=== PATIENT | female | born 1980 | race Caucasian/White ===

== ENCOUNTER 2017-06-18 14:45 | Emergency (ER) | payer MEDICAID, SELFPAY ==
[2017-06-18 14:46] VITALS: BP 159/105; PULSE 78; RESP 14; TEMP 36.9; O2SAT 100; BMI 32.5
--- NOTE | 2017-06-18 15:41 | XR_ITS ---
XR chest 2V HISTORY: ITS.REASON: cough ORDERING PHYSICIAN: Sean Vidal MD PATIENT AGE: 37 years COMPARISON: 07/09/2007 FINDINGS: The cardiomediastinal silhouette and pulmonary vascularity are within normal limits. The lungs are clear without infiltrates, suspicious nodules, or pleural effusions. No acute bony abnormalities. IMPRESSION: Negative chest, no acute finding
--- NOTE | 2017-06-18 16:11 | HMH.EDGENADL ---
ED Disposition Clinical Impression: Bronchitis Disposition: Home, Self-Care Condition on Discharge: Good Instructions: DI for Acute Bronchitis Additional Instructions: Please discontinue the use of Keflex at the current time, please find prescription attached for new antibiotic, Levaquin. Please follow-up with PCP if not better in 5-7 days. Prescriptions: Benzonatate [Tessalon Perle 100mg Cap] 200 mg PO TID #30 cap levoFLOXacin [Levaquin 750mg tablet] 750 mg PO DAILY #9 tab Referrals: Jacobo Carrillo APRN [Primary Care Provider] - Time of Disposition: 16:11 - Critical Care Critical Care Time: No Attestation: On 06/18/17, the high probability of a clinically significant, sudden or life threatening deterioration of the following system(s) required my full and direct attention, intervention and personal management. The time I documented below is in addition to time spent performing reported procedures but includes the following listed in this critical care notation. Medical Decision Making - Medical Records Medical records reviewed: Yes: I reviewed the patient's medical records. Vital Signs: 06/18/17 14:46 06/18/17 16:23 Temperature 98.5 F Temperature Source Oral Pulse Rate 75 Pulse Rate [Right Brachial] 78 Respiratory Rate 14 14 Blood Pressure 135/96 Blood Pressure [Right Arm] 159/105 Blood Pressure Mean [Right Arm] 123 Blood Pressure Source Automatic Cuff Blood Pressure Source [Right Arm] Automatic Cuff Blood Pressure Position Sitting Blood Pressure Position [Right Arm] Sitting 02 Sat by Pulse Oximetry 100 Oxygen Delivery Method Room Air Room Air - Lab Data Lab results reviewed: Yes: I reviewed the patient's lab results. - Radiology Data #1 Image(s): Chest Image Reviewed: Yes I reviewed the patient's radiology results, Yes I reviewed the patient's radiology image, Yes I discussed the image results w/the radiologist Preliminary Findings: Normal/NAD - Vaibhav Inquiry Pt receiving controlled substance: No - Reevaluation(s) Time: 16:00 Reevaluation #1: Patient advised of x-ray findings, instructed to continue the antibiotics prescribed and follow-up with PCP if not better within 2-3 days. General Adult HPI - General Chief complaint: Upper Respiratory Infection Stated complaint: diagnosed with pneumonia on [id number] still not janiya Time Seen by Provider: 06/18/17 15:30 Mode of Arrival: Ambulatory Source of Information: Patient Limitations: No Limitations Description of Symptoms (Recalled from ER Triage Doc. by RN): Pt diagnosed with pneumonia on thursday. Started on kefelx and predisone. Doesn't feel any better - History of Present Illness HPI narrative: cough / congestion / was told by PCP that she has pneumonia Onset (ago): day(s) (2) Severity: moderate Severity scale (1-10): 4 Quality: aching Consistency: constant Relieving factors: none Exacerbating factors: none Associated symptoms: denies other symptoms - Related Data Home Medications Medication Instructions Recorded Confirmed buspirone 10 mg tablet 7.5 mg PO BID 06/15/17 cetirizine 10 mg capsule 10 mg PO ONCE 06/15/17 venlafaxine ER 150 mg 150 mg PO ONCE 06/15/17 capsule,extended release 24 hr verapamil ER 240 mg 24 hr 240 mg PO ONCE 06/15/17 capsule,extended release Previous Rx's Medication Instructions Recorded cephalexin 500 mg capsule 500 mg PO Q12H 10 Days #20 cap 06/15/17 prednisone 20 mg tablet 20 mg PO BID #10 tab 06/15/17 Benzonatate [Tessalon Perle 100mg 200 mg PO TID #30 cap 06/18/17 Cap] levoFLOXacin [Levaquin 750mg 750 mg PO DAILY #9 tab 06/18/17 tablet] Allergies Allergy/AdvReac Type Severity Reaction Status Date / Time No Known Allergies Allergy Verified 06/18/17 15:41 [facility] History I have reviewed the patient's past medical history: Yes - *Social History Smoking Status: Current every day smoker Tobacco Type: cigarettes # Packs/Day (cigaret
--- NOTE | 2017-06-18 16:15 | ED_ITS ---
ED Disposition Clinical Impression: Bronchitis Disposition: Home, Self-Care Condition on Discharge: Good Instructions: DI for Acute Bronchitis Additional Instructions: Please discontinue the use of Keflex at the current time, please find prescription attached for new antibiotic, Levaquin. Please follow-up with PCP if not better in 5-7 days. Prescriptions: Benzonatate [Tessalon Perle 100mg Cap] 200 mg PO TID #30 cap levoFLOXacin [Levaquin 750mg tablet] 750 mg PO DAILY #9 tab Referrals: Jacobo Carrillo APRN [Primary Care Provider] - Time of Disposition: 16:11 - Critical Care Critical Care Time: No Attestation: On 06/18/17, the high probability of a clinically significant, sudden or life threatening deterioration of the following system(s) required my full and direct attention, intervention and personal management. The time I documented below is in addition to time spent performing reported procedures but includes the following listed in this critical care notation. Medical Decision Making - Medical Records Medical records reviewed: Yes: I reviewed the patient's medical records. Vital Signs: 06/18/17 14:46 06/18/17 16:23 Temperature 98.5 F Temperature Source Oral Pulse Rate 75 Pulse Rate [Right Brachial] 78 Respiratory Rate 14 14 Blood Pressure 135/96 Blood Pressure [Right Arm] 159/105 Blood Pressure Mean [Right Arm] 123 Blood Pressure Source Automatic Cuff Blood Pressure Source [Right Arm] Automatic Cuff Blood Pressure Position Sitting Blood Pressure Position [Right Arm] Sitting 02 Sat by Pulse Oximetry 100 Oxygen Delivery Method Room Air Room Air - Lab Data Lab results reviewed: Yes: I reviewed the patient's lab results. - Radiology Data #1 Image(s): Chest Image Reviewed: Yes I reviewed the patient's radiology results, Yes I reviewed the patient's radiology image, Yes I discussed the image results w/the radiologist Preliminary Findings: Normal/NAD - Vaibhav Inquiry Pt receiving controlled substance: No - Reevaluation(s) Time: 16:00 Reevaluation #1: Patient advised of x-ray findings, instructed to continue the antibiotics prescribed and follow-up with PCP if not better within 2-3 days. General Adult HPI - General Chief complaint: Upper Respiratory Infection Stated complaint: diagnosed with pneumonia on [id number] still not janiya Time Seen by Provider: 06/18/17 15:30 Mode of Arrival: Ambulatory Source of Information: Patient Limitations: No Limitations Description of Symptoms (Recalled from ER Triage Doc. by RN): Pt diagnosed with pneumonia on thursday. Started on kefelx and predisone. Doesn't feel any better - History of Present Illness HPI narrative: cough / congestion / was told by PCP that she has pneumonia Onset (ago): day(s) (2) Severity: moderate Severity scale (1-10): 4 Quality: aching Consistency: constant Relieving factors: none Exacerbating factors: none Associated symptoms: denies other symptoms - Related Data Home Medications Medication Instructions Recorded Confirmed buspirone 10 mg tablet 7.5 mg PO BID 06/15/17 cetirizine 10 mg capsule 10 mg PO ONCE 06/15/17 venlafaxine ER 150 mg 150 mg PO ONCE 06/15/17 capsule,extended release 24 hr verapamil ER 240 mg 24 hr 240 mg PO ONCE 06/15/17 capsule,extended release Previous
[2017-06-18 16:23] VITALS: BP 135/96; PULSE 75; RESP 14; O2SAT 98
== END 2017-06-18 16:24 | disposition home or self-care (01) ==
PROVIDERS: Emergency Provider Emergency Medicine; Family Provider Emergency Medicine; PCP Nurse Practitioner Family
DX: J40 Bronchitis, not specified as acute or chronic (principal); Z79.899 Other long term (current) drug therapy; F17.210 Nicotine dependence, cigarettes, uncomplicated
CPT/HCPCS: 71046; 99283

== ENCOUNTER → 2018-02-12 14:59 | Outpatient (CLI) | payer MEDICAID, SELFPAY ==
--- NOTE | 2018-02-12 15:06 | CT_ITS ---
CT sinus wo con CLINICAL INDICATION: Chronic sinusitis ITS.REASON: PAIN ORDERING PHYSICIAN: Kevin Vital MD PATIENT AGE: 37 years COMPARISON: None TECHNIQUE:Axial images obtained with sagittal and coronal reformats. All CT scans at the facility use one or more dose reduction, viz: automated exposure control, ma/kV adjustment per patient size (including targeted exams where dose is matched to indication, i.e. head), or iterative reconstruction technique. FINDINGS: Mild mucosal thickening of the right ethmoid sinus anteriorly and of the left maxillary sinus. No sinus air-fluid levels are evident. No sinus masses. The nasal turbinates are small. There is mild leftward nasal septal deviation. There appears to be small defects within the inferior aspect of both maxillary sinus hill and could be due to small surgical defects versus very thinning of the hill. The orbits have an unremarkable appearance. The temporomandibular joints are unremarkable. There is a small oval opacity along the roof of the mouth on the left measuring 12 x 8 x 11 mm and may be something patient has again there mass such as a lozenge. Please correlate clinically IMPRESSION: Minimal inflammatory change of the right ethmoid and left maxillary sinus. No evidence of acute sinusitis
== END ==
PROVIDERS: Family Provider Emergency Medicine; PCP Emergency Medicine; Visit Provider Otolaryngology
DX: H57.12 Ocular pain, left eye (principal); J32.0 Chronic maxillary sinusitis; J32.9 Chronic sinusitis, unspecified
CPT/HCPCS: 70486

== ENCOUNTER → 2018-03-29 09:45 | Outpatient (CLI) | payer MEDICAID, SELFPAY ==
[2018-03-29 10:48] LABS: Basophils # 0.1 K/mm3 (0-0.2); Basophils % 1.1 % (0.1-2.0); Eosinophils # 0.5 K/mm3 (0.0-0.4); Eosinophils % 4.6 % (0.1-12.0); Hematocrit 42.2 % (37.0-47.0); Hemoglobin 13.6 g/dL (12.2-16.2); Lymphocytes # 2.7 K/mm3 (0.7-4.5); Lymphocytes % 26.4 K/mm3 (10-50); Mean Corpuscular HGB Conc 32.3 g/dL (31.8-35.4); Mean Corpuscular Hemoglobin 28.3 pg (27.0-31.2); Mean Corpuscular Volume 87.6 fl (81-99); Mean Platelet Volume 7.6 fl (7.4-10.4); Monocytes # 0.5 K/mm3 (0.1-1.0); Monocytes % 5.3 % (1.7-9.3); Neutrophils # 6.5 K/mm3 (1.8-7.8); Neutrophils % 62.8 % (37.0-80.0); Platelet Count 402 K/mm3 (142-424); Red Blood Count 4.82 M/mm3 (4.20-5.40); Red Cell Distribution Width 14.4 % (11.5-17.5); White Blood Count 10.3 K/mm3 (4.8-10.8)
[2018-03-29 12:05] LABS: Anion Gap 13.3 mEq/L (5-15); Blood Urea Nitrogen 9 mg/dL (7-18); Calcium 8.9 mg/dL (8.5-10.1); Carbon Dioxide 25 mmol/L (21.0-32.0); Chloride 106 mmol/L (98-107); Creatinine,Serum 0.71 mg/dL (0.55-1.02); Estimated Glomerular Filt Rate 93 ml/min (>60); GFR (African American) 112 ML/MIN (>60); Glucose 80 mg/dL (74-106); Potassium 4.3 mmoL/L (3.5-5.1); Sodium 140 mmol/L (136-145)
[2018-03-29 12:11] LABS: HCG Qualitative, Serum Negative (Negative)
== END ==
PROVIDERS: Visit Provider Otolaryngology
DX: Z01.818 Encounter for other preprocedural examination (principal); J32.2 Chronic ethmoidal sinusitis; J32.0 Chronic maxillary sinusitis; J34.2 Deviated nasal septum
CPT/HCPCS: 36415; 80048; 84703; 85025; 93005

== ENCOUNTER → 2018-05-17 16:52 | Outpatient (CLI) | payer MEDICAID, SELFPAY ==
--- NOTE | 2018-05-17 16:55 | XR_ITS ---
XR finger RT min 2V Ordering Physician: Deysi Rojas Patient Age: 37 years: Female HISTORY: ITS.REASON: pain . Trauma. Head CT is old, redundant hand. Pain and bruising third finger TECHNIQUE: 3 views right hand COMPARISON : None of right hand. There is a left hand study from 2016. FINDINGS Corner fracture at the base of the distal phalanx long finger. This oblique fracture passes nearly to the mid articular surface of the distal phalanx and then passes oblique fracture to the proximal metaphysis, ulnar aspect. Basically nondisplaced fracture with very minor distraction at the lateral aspect of the fracture. On the lateral view question scant posterior offset. Otherwise the middle phalanx and proximal phalanx of long finger intact IMPRESSION: Fracture at the ulnar corner and base of distal phalanx right long finger Corner fracture with with articular extension.
== END ==
PROVIDERS: PCP Emergency Medicine; Visit Provider Nurse Practitioner Family
DX: M25.40 Effusion, unspecified joint (principal)
CPT/HCPCS: 73140

== ENCOUNTER 2023-09-24 13:00 | Outpatient (CLI) | payer OTHER, SELFPAY ==
[2023-09-24 18:40] LABS: Basophils # 0.1 K/mm3 (0-0.2); Basophils % 1.3 % (0.1-2.0); Eosinophils # 0.2 K/mm3 (0.0-0.4); Eosinophils % 2.5 % (0.1-12.0); Hematocrit 42.2 % (37.0-47.0); Lymphocytes # 2.9 K/mm3 (0.7-4.5); Lymphocytes % 31.6 % (10-50); Mean Corpuscular HGB Conc 33.2 g/dL (31.8-35.4); Mean Corpuscular Hemoglobin 29.7 pg (27.0-31.2); Mean Corpuscular Volume 89.7 fl (81-99); Mean Platelet Volume 9.2 fl (7.4-10.4); Monocytes # 0.5 K/mm3 (0.1-1.0); Monocytes % 5.5 % (1.7-9.3); Neutrophils # 5.5 K/mm3 (1.8-7.8); Platelet Count 362 K/mm3 (142-424); Red Cell Distribution Width 14.8 % (11.5-17.5); White Blood Count 9.3 K/mm3 (4.8-10.8)
[2023-09-24 19:05] LABS: Alanine Aminotransferase 29 U/L (12-78); Albumin/Globulin Ratio 1.7 (1.1-1.8); Alkaline Phosphatase 71 U/L (38-126); Aspartate Amino Transferase 33 U/L (14-36); Bilirubin,Total 0.4 mg/dl (0.2-1.3); Blood Urea Nitrogen 8 mg/dl (7-17); Calcium 9.5 mg/dl (8.4-10.2); Carbon Dioxide 26 mmol/L (22.0-30.0); Chloride 108 mmol/L (98-107); Chol/HDL Ratio 6.1 (1-3.5); Cholesterol 201 mg/dl (140-200); Estimated Glomerular Filt Rate 78 ml/min (>60); GFR (African American) 95 ML/MIN (>60); Globulin 2.3 g/dL (1.3-3.2); Glucose 82 mg/dl (74-100); HDL Cholesterol 33 mg/dl (40-60); Sodium 140 mmol/L (136-145); Total Protein,Serum 6.3 g/dl (6.3-8.2); Triglycerides 235 mg/dl (30-150); VLDL Cholesterol 47 mg/dL (0-40)
[2023-09-24 19:16] LABS: Direct LDL Cholesterol 124.05 mg/dL (100-129)
[2023-09-24 19:24] LABS: HCG,Quantitative < 2 mIU/ml (0-5.42)
[2023-09-24 19:25] LABS: 25-OH Vitamin D, Total 43.8 ng/mL (30-100)
[2023-09-24 19:27] LABS: Iron 90 ug/dL (37-170)
[2023-09-24 19:28] LABS: Hemoglobin A1C 5.6 % (4.0-6.0)
[2023-09-24 19:36] LABS: Thyroid Stimulating Hormone 1.27 uIU/mL (0.465-4.68)
[2023-09-24 19:37] LABS: Total Iron Binding Capacity 378 ug/dL (265-497)
[2023-09-24 19:56] LABS: Vitamin B12 716 pg/mL (239-931)
[2023-09-24 20:03] LABS: Ferritin 17.9 ng/ml (6.24-137)
[2023-09-26 08:23] LABS: Estradiol 61.9 pg/mL (.); LH 6.5 mIU/mL (.)
== END 2023-09-24 23:59 | disposition home or self-care (01) ==
LOC: LAB.DROPOF 09-25 13:01
PROVIDERS: PCP Student in an Organized Health Care Education/Training Program; Visit Provider Student in an Organized Health Care Education/Training Program
DX: R53.83 Other fatigue (principal); N91.2 Amenorrhea, unspecified; E66.9 Obesity, unspecified; Z68.31 Body mass index [BMI] 31.0-31.9, adult
CPT/HCPCS: 80053; 80061; 82306; 82607; 82670; 82728; 83002; 83036; 83540; 83550; 84443; 84702; 85025

== ENCOUNTER 2023-11-05 00:13 | Emergency (ER) | payer OTHER, SELFPAY ==
[2023-11-05] VITALS (12 sets, daily range): BP systolic 115–146; BP diastolic 80–99; PULSE 64–81; RESP 15–20; TEMP 36.8; O2SAT 94–100; BMI 31.8
--- NOTE | 2023-11-05 00:18 | ECG_ITS ---
APPROVED REPORT Exam: Resting ECG HR:73 bpm ECG Measurements Heart Rate 73 AXES [place] 122 P 11 QRSd 101 QRS 9 QT 314 T 48 QTc 340 Conclusion SINUS RHYTHM Electronically signed by : EDWARD DUNCAN, 11/05/2023 06:58:52
[2023-11-05] MEDS: ASPIRIN 325MG TABLET 325 MG PO (00:31)
[2023-11-05] MEDS: ACETAMINOPHEN 500MG TAB 1000 MG PO (00:31)
[2023-11-05 00:35] LABS: Basophils # 0.2 K/mm3 (0-0.2); Basophils % 1.5 % (0.1-2.0); Eosinophils # 0.2 K/mm3 (0.0-0.4); Eosinophils % 1.9 % (0.1-12.0); Hematocrit 48.7 % (37.0-47.0); Hemoglobin 15.8 g/dL (12.2-16.2); Lymphocytes # 3.8 K/mm3 (0.7-4.5); Lymphocytes % 32.6 % (10-50); Mean Corpuscular HGB Conc 32.4 g/dL (31.8-35.4); Mean Corpuscular Hemoglobin 28.6 pg (27.0-31.2); Mean Corpuscular Volume 88.3 fl (81-99); Mean Platelet Volume 8.3 fl (7.4-10.4); Monocytes # 0.5 K/mm3 (0.1-1.0); Monocytes % 4.1 % (1.7-9.3); Neutrophils % 59.9 % (37.0-80.0); Platelet Count 341 K/mm3 (142-424); Red Blood Count 5.52 M/mm3 (4.20-5.40); Red Cell Distribution Width 14.4 % (11.5-17.5); White Blood Count 11.7 K/mm3 (4.8-10.8)
--- NOTE | 2023-11-05 00:44 | XR_ITS ---
PROCEDURE INFORMATION: Exam: XR Chest Exam date and time: 11/05/2023 12:44 AM Age: 43 years old Clinical indication: Pain; Chest pressure; Additional info: Cp TECHNIQUE: Imaging protocol: Radiologic exam of the chest. Views: 1 view. COMPARISON: CR CXR2V XR chest 2V 06/18/2017 3:40 PM FINDINGS: Lungs: Unremarkable. No consolidation. Pleural spaces: Unremarkable. No pleural effusion. No pneumothorax. Heart/Mediastinum: Unremarkable. No cardiomegaly. Vasculature: Unremarkable. Bones/joints: Unremarkable. IMPRESSION: No acute findings.
[2023-11-05 00:47] LABS: HCG Qualitative, Serum Negative (Negative)
[2023-11-05 00:50] LABS: Alanine Aminotransferase 44 U/L (12-78); Albumin Level 4.7 g/dl (3.5-5.0); Albumin/Globulin Ratio 1.4 (1.1-1.8); Alkaline Phosphatase 97 U/L (38-126); Anion Gap 14.3 mEq/L (5-15); Aspartate Amino Transferase 41 U/L (14-36); Bilirubin,Total 0.5 mg/dl (0.2-1.3); Blood Urea Nitrogen 8 mg/dl (7-17); Calcium 10.1 mg/dl (8.4-10.2); Carbon Dioxide 26 mmol/L (22.0-30.0); Chloride 105 mmol/L (98-107); Creatinine Clearance Estimated 104 mL/min (50-200); Estimated Glomerular Filt Rate 68 ml/min (>60); GFR (African American) 83 ML/MIN (>60); Globulin 3.3 g/dL (1.3-3.2); Glucose 107 mg/dl (74-100); Potassium 3.3 mmoL/L (3.5-5.1); Sodium 142 mmol/L (136-145)
--- NOTE | 2023-11-05 00:54 | ED_ITS ---
Discharge Plan Disposition Patient Disposition: Home, Self-Care Referrals Follow up/Referrals: Sammi Sweet PA [Primary Care Provider] - See instructions Activity Restrictions/Add. Instructions Additional Instructions/Restrictions: Please consider establishing care with primary care doctor. Please return to the emergency department if you develop any new or worsening symptoms or become concerned for your health. Clinical Impressions Clinical Impression: Chest pain Discharge ED Provider: Lukasz Recio Adult HPI General Chief complaint: Chest Pain Stated complaint: cp Time Seen by Provider: 11/05/23 00:15 Mode of Arrival: Ambulatory Source of Information: Patient Limitations: No Limitations Description of Symptoms (Recalled from ER Triage Doc. by RN): 43 F presents with c/o left sided chest pressure she rates as 7/10 and radiates to her left axillary and down her left arm. Patient reports she was laying in bed when this happened. Patient states she was seen by her PCP 1 week ago and diagnosed with bronchitis. Patient does smoke approx 1 ppd. Subjective fever at home. History of Present Illness HPI narrative: 43-year-old female with history of hyperlipidemia presents with chest pain. She reports it is left-sided in nature, approximately 7 out of 10, radiating down her left arm. She reports no recent significant physical activity or trauma. She reports that she is currently on azithromycin and steroids for bronchitis that was diagnosed approximately 1 week ago. She reports that she has been feeling mildly ill at home but this chest pain is new and different. Chest pain started approximate 1 hour prior to arrival. She is not on contraceptives, no history of blood clot, no recent surgery or immobilization Related Data Allergies Allergy/AdvReac Type Severity Reaction Status Date / Time No Known Allergies Allergy Verified 10/28/23 09:03 [facility] Disclaimer: The information contained in this section may have been updated after the patient was seen, as this information can be updated by other users. Medical History Medical clearance for incarceration Abrasion Surgical History No significant past surgical history Family History Other No significant family history Social History (Updated 11/05/23 @ 00:26 by Rubio Leong RN) Smoking Status: Current every day smoker tobacco type: cigarettes packs per day: 1 alcohol intake: current substance use type: heroin current occupational status: unemployed Travel in the last 8 weeks: None household members: significant other and children housing: house caffeine: Yes ROS Obtained: Yes All systems reviewed & no additional complaints except as documented Physical Exam General General appearance: alert and anxious Head Head exam: atraumatic and normocephalic Eye Eye exam: Present normal appearance, PERRL and EOMI ENT ENT exam: Present normal oropharynx and normal external ear exam Neck Neck exam: Present normal inspection and full ROM Chest Chest inspection: Present normal inspection and symmetric chest wall rise; Absent tenderness Respiratory Respiratory exam: Present normal lung sounds bilaterally; Absent respiratory distress Cardiovascular Cardiovascular exam: Present regular rate and normal rhythm Abdominal Exam Abdominal exam: Present soft; Absent distention, tenderness or guarding Extremities Exam Extremities exam: Present normal inspection; Absent edema or joint swelling Back Exam Back exam: Present normal inspection; Absent tenderness Neurological Exam Neurological exam: Present alert and oriented X3; Absent motor sensory deficit Psychiatric Psychiatric exam: Present normal affect and normal mood Skin Skin exam: Present warm, dry and normal color Lymphatic Lymphatic Findings: no adenopathy Medical Decision Making Medical Records Medical records reviewed: Yes I reviewed the patient's medical records. Vaibhav Inquiry Pt receiving controlled substance: No Vaibhav was queried for this patient: No Vital Signs: 11/05/23 00:14 11/05/23 00:19 11/05/23 00:23 Temperature 98.3 F Temperature Source Oral Pulse Rate 81 80 Pulse Rate [Left] 73 Respiratory Rate 20 15 Blood Pressure 146/99 H Blood Pressure [Right Arm] 146/99 H Blood Pressure Mean 105 Blood Pressure Mean [Right Arm] 114 Blood Pressure Source [Right Arm] Automatic Cuff Blood Pressure Position [Right Arm] Supine 02 Sat by Pulse Oximetry 100 96 Oxygen Delivery Method Room Air Room Air 11/05/23 00:30 11/05/23 01:00 11/05/23 01:30 Temperature Temperature Source Pulse Rate 73 71 67 Pulse Rate [Left] Respiratory Rate 15 17 20 Blood Pressure 137/90 131/80 123/87 Blood Pressure [Right Arm] Blood Pressure Mean 101 97 96 Blood Pressure Mean [Right Arm] Blood Pressure Source [Right Arm] Blood Pressure Position [Right Arm] 02 Sat by Pulse Oximetry 96 97 94 L Oxygen Delivery Method Room Air Room Air Room Air 11/05/23 02:00 11/05/23 02:30 11/05/23 03:00 Temperature Temperature Source Pulse Rate 72 71 68 Pulse Rate [Left] Respiratory Rate 15 18 20 Blood Pressure 130/88 115/82 120/91 H Blood Pressure [Right Arm] Blood Pressure Mean 95 91 100 Blood Pressure Mean [Right Arm] Blood Pressure Source [Right Arm] Blood Pressure Position [Right Arm] 02 Sat by Pulse Oximetry 96 95 95 Oxygen Delivery Method Room Air Room Air Room Air 11/05/23 03:30 11/05/23 04:00 Temperature Temperature Source Pulse Rate 64 65 Pulse Rate [Left] Respiratory Rate 17 17 Blood Pressure 126/96 H 123/84 Blood Pressure [Right Arm] Blood Pressure Mean 105 97 Blood Pressure Mean [Right Arm] Blood Pressure Source [Right Arm] Blood Pressure Position [Right Arm] 02 Sat by Pulse Oximetry 98 96 Oxygen Delivery Method Room Air Room Air Lab Data Lab results reviewed: Yes I reviewed the patient's lab results. Lab Results 11/05/23 00:20: WBC 11.7 H, RBC 5.52 H, Hgb 15.8, Hct 48.7 H, MCV 88.3, MCH 28.6, MCHC 32.4, RDW 14.4, Plt Count 341, MPV 8.3, Neut % (Auto) 59.9, Lymph % (Auto) 32.6, Noble % (Auto) 4.1, Eos % (Auto) 1.9, Baso % (Auto) 1.5, Neut # (Auto) 7.0, Lymph # (Auto) 3.8, Noble # (Auto) 0.5, Eos # (Auto) 0.2, Baso # (Auto) 0.2, Sodium 142, Potassium 3.3 L, Chloride 105, Carbon Dioxide 26, Anion Gap 14.3, BUN 8, Creatinine 0.90, Estimated Creat Clear 104, Estimated GFR 68, Est GFR ( Amer) 83, Glucose 107 H, Calcium 10.1, Total Bilirubin 0.5, AST 41 H, ALT 44, Alkaline Phosphatase 97, Troponin I < 0.01, Total Protein 8.0 D, Albumin 4.7, Globulin 3.3 H, Albumin/Globulin Ratio 1.4, Serum HCG, Qual Negative 11/05/23 03:23: Troponin I < 0.01 11/05/23 00:20 11/05/23 00:20 Orders (Tests/Meds): ED MEDICATIONS Discontinued Medications Generic Name Dose Route Start Last Admin Trade Name Meka PRN Reason Stop Dose Admin Acetaminophen 1,000 mg 11/05/23 00:27 11/05/23 00:31 Acetaminophen 500mg Tab PO 11/05/23 00:28 1,000 mg ONCE ONE Administration Aspirin 325 mg 11/05/23 00:27 11/05/23 00:31 Aspirin 325mg Tablet PO 11/05/23 00:28 325 mg ONCE ONE Administration ORDERS Category Date Time Status CXR --portable [XR chest portable] Stat Exams 11/05/23 00:44 Completed CBC w/Auto Diff [Complete Blood Count Auto Diff] Stat Lab 11/05/23 00:20 Completed CMP [Comprehensive Metabolic Panel] Stat Lab 11/05/23 00:20 Completed HCG Qualitative, Serum Stat Lab 11/05/23 00:20 Completed Troponin I Q3H Lab 11/05/23 00:20 Completed Troponin I Q3H Lab 11/05/23 03:23 Completed ECG Data Tracing #1: I reviewed this ECG and interpreted as documented below: Sinus rhythm, rate of 73, possible subtle ST depression in lead II III and aVF, though baseline artifact limits interpretation. Normal intervals, no evidence of arrhythmia. ECG initial impression date: 11/05/23 ECG initial impression time: 00:19 Tracing #2: I reviewed this ECG and interpreted as documented below: Sinus rhythm, bradycardia with rate of 59, no ST elevation, T wave inversions/biphasic T waves noted in inferior and precordial leads ECG initial impression date: 11/05/23 ECG initial impression time: 03:22 HEART Score History (anamnesis): Moderately suspicious ECG: Non-specific disturbance Age: <45 years Risk factors: 1-2 risk factors Troponin: </= normal limit HEART Score: 3 Medical Decision Narrative: 43-year-old female without significant past medical history, recently diagnosed with bronchitis and currently on azithromycin and steroids presents with sudden onset left-sided chest pain for radiation of the left arm.. History was obtained interactive discussion with patient, chart review. On arrival, patient is [afebrile, hemodynamically stable, satting appropriately, alert, oriented x4, GCS 15], moving all extremities spontaneously. Full physical exam performed and significant for no significant physical exam abnormalities. Differential includes but is not limited to ACS, PE, musculoskeletal chest pain, GERD, pneumonia, aortic pathology esophagitis. Patient was given full dose aspirin and Tylenol for symptomatic management and correction of underlying abnormalities. Workup initiated including CBC CMP troponin EKG chest x-ray test. D-dimer was considered but deemed unnecessary as patient is PERC negative. On re-evaluation, patient [remains afebrile, HD stable.] Reports of chest pain and arm pain are completely gone. Laboratory workup independently interpreted by me and significant for undetectably low troponin x 2, minimal leukocytosis, minimal hypokalemia, negative test Imaging independently interpreted by me and significant for chest x-ray without focal opacity. See radiology read for full review of final results. EKG independently interpreted by me and significant as documented above. Given patient history, exam and workup, patient's presentation most likely represents chest pain of uncertain etiology. Patient is symptom-free after Tylenol and aspirin. Admission for chest pain was considered, but deemed inappropriate given no evidence of acute coronary syndrome, PE, aortic pathology etc. I had and interactive discussion with patient regarding her presentation. I encouraged her to follow-up with PCP and consider cardiology evaluation. She was given strict return precautions. Procedures Risk/Benefits of Procedure(s) Were Explained: Yes Critical Care Critical Care Time Critical Care Time: No
[2023-11-05 01:07] LABS: Troponin I < 0.01 ng/ml (0.00-0.034)
--- NOTE | 2023-11-05 01:30 | PC.NURSE ---
Patient updated that we would be completing a 3 hour troponin. Patient agreeable for plan. SHe is resting with family at bedside. No c/o at this time and no concerns. Patient VSS, NAD, does not c/o pain
--- NOTE | 2023-11-05 02:46 | PC.NURSE ---
Patient resting with equal rise and fall of chest. NSR on monitor with NVS. No acute ECG changes on monitor. Will repeat EKG and Troponin at 0330 as planned.
--- NOTE | 2023-11-05 03:21 | ECG_ITS ---
APPROVED REPORT Exam: Resting ECG HR:59 bpm ECG Measurements Heart Rate [address] 150 P 67 QRSd 97 QRS -35 QT 409 T -62 QTc 408 Conclusion Sinus bradycardia T wave inversions V4 through V6 concerning for anterior ischemia T wave inversions 2, 3, aVF concerning for inferior ischemia No reciprocal ST elevations Electronically signed by : EDWARD DUNCAN, 11/05/2023 07:01:10
--- NOTE | 2023-11-05 03:26 | PC.NURSE ---
3hr Troponin and repeat EKG completed. Patient updated on plan of care and still agreeable. NAD, VSS, and no active needs or concerns.
[2023-11-05 03:57] LABS: Troponin I < 0.01 ng/ml (0.00-0.034)
--- NOTE | 2023-11-05 04:04 | PC.NURSE ---
Attending at bedside speaking to patient about test results
== END 2023-11-05 04:11 | disposition home or self-care (01) ==
PROVIDERS: Emergency Provider Emergency Medicine; PCP Student in an Organized Health Care Education/Training Program
DX: R07.9 Chest pain, unspecified (principal); E87.6 Hypokalemia; R00.1 Bradycardia, unspecified; F17.210 Nicotine dependence, cigarettes, uncomplicated
CPT/HCPCS: 71045; 80053; 84484; 84703; 85025; 93005; 99284

== ENCOUNTER 2024-02-08 12:22 | Outpatient (CLI) | payer OTHER, SELFPAY ==
[2024-02-08 20:25] LABS: Chol/HDL Ratio 3.9 (1-3.5); Cholesterol 162 mg/dl (140-200); HDL Cholesterol 42 mg/dl (40-60); Triglycerides 191 mg/dl (30-150); VLDL Cholesterol 38 mg/dL (0-40)
[2024-02-08 20:40] LABS: Direct LDL Cholesterol 95.61 mg/dL (100-129)
[2024-02-08 21:16] LABS: Hemoglobin A1C 5.6 % (4.0-6.0)
== END 2024-02-08 23:59 | disposition home or self-care (01) ==
LOC: LAB.DROPOF 02-09 12:22
PROVIDERS: PCP Student in an Organized Health Care Education/Training Program; Visit Provider Student in an Organized Health Care Education/Training Program
DX: F41.9 Anxiety disorder, unspecified (principal); F32.A Depression, unspecified
CPT/HCPCS: 80061; 83036